=== PATIENT | male | born 1990 | race Caucasian/White ===

== ENCOUNTER 2023-03-20 19:24 | Emergency (ER) | payer OTHER, SELFPAY ==
[2023-03-20] VITALS (7 sets, daily range): BP systolic 130–142; BP diastolic 80–96; PULSE 61–77; RESP 16; TEMP 36.8; O2SAT 97–100; BMI 21.7
--- NOTE | 2023-03-20 19:36 | ED.NAVMDI ---
HPI - Nausea/Vomiting/Diarrhea General Chief complaint: Nausea/Vomiting/Diarrhea Stated complaint: Vertigo, Nausea, Confusion, Drunk feeling Time Seen by Provider: 03/20/23 19:28 Source: patient and family Mode of arrival: Ambulatory History of Present Illness HPI Narrative: Patient is a 32-year-old otherwise healthy male who is here for evaluation of an episode of nausea and vertigo and confusion and had fog. Patient states he was at his normal state of health. He went for a run. He states it was not particularly hard run. States that afterwards he was standing in the shower when he had a sudden onset of feeling like things were spinning. Was having nausea but no vomiting. States he is having some problems thinking of words. No headache. No ringing in his ears. No sinus congestion. No chest pain or palpitations. No shortness of breath. He thinks that his symptoms have improved slightly from the onset but is certainly not back to normal. Had some tingling in his hands. Related Data Previous Rx's Medication Instructions Recorded meclizine 25 mg tablet 25 mg PO BID PRN motion sickness 03/20/23 #14 tabs ondansetron 4 mg disintegrating 4 mg PO Q6H PRN nausea and 03/20/23 tablet vomiting #14 tabs Allergies Allergy/AdvReac Type Severity Reaction Status Date / Time No Known Drug Allergies Allergy Verified 03/20/23 19:32 Review of Systems Constitutional Constitutional: Reports system reviewed and no additional complaints, except as documented Cardiovascular Cardiovascular: Reports system reviewed and no additional complaints, except as documented Respiratory Respiratory: Reports system reviewed and no additional complaints, except as documented Gastrointestinal Gastrointestinal: Reports system reviewed and no additional complaints, except as documented Musculoskeletal Musculoskeletal: Reports system reviewed and no additional complaints, except as documented Integumentary/Breasts Skin/Breast: Reports system reviewed and no additional complaints, except as documented Neurologic Neurologic: Reports system reviewed and no additional complaints, except as documented Hematologic/Lymphatic On Anticoagulants: No Patient History Medical History Chronic prostatitis History of chlamydia History of chronic urinary tract infection History of dysuria Family History Father Cancer Grandfather Cancer Social History marital status: unmarried,single number of children: 0 occupational status: employed Smoking Status: Never smoker alcohol intake: current caffeine: Yes Type(s) of exercise: regular exercise, weight lifting, other and running duration: > 90 minutes/day Smoking Status: Never smoker alcohol intake frequency: a few times a week Substance Use Type: does not use Exam Initial Vital Signs Initial Vital Signs: Vital Signs Temperature 98.2 F 03/20/23 19:32 Pulse Rate 73 03/20/23 19:32 Respiratory Rate 16 03/20/23 19:32 Blood Pressure 140/96 H 03/20/23 19:32 Pulse Oximetry 97 03/20/23 19:32 Oxygen Delivery Method Room Air 03/20/23 19:32 Const General: cooperative, comfortable and No ill appearing HENMT Head: normal to inspection and normocephalic Ears: hearing grossly normal bilaterally and TM's normal bilaterally Face and sinus: normal facial exam Mouth: oral mucosae normal Eyes Pupils: PERRL Resp Effort & Inspection: normal respiratory effort Auscultation: clear to auscultation bilaterally Cardio Rate: regular rate Rhythm: regular rhythm GI Inspection: normal to inspection Neuro General: patient alert, patient awake, patient oriented x3 and moves all extremities Cranial Nerves: CN's II-XI intact bilaterally Speech: speech normal Gait: normal gait Sensory Exam: no sensory deficits noted Other: Albaro-Hallpike maneuver reported positive to the left Extrem General: normal to inspection and capillary refill normal Course Orders Ordered: ED Orders 03/20/23 19:37 EKG-12 Lead Stat 03/20/23 19:48 Basic Metabolic Panel Stat Complete Blood Count AUTO DIFF Stat Ondansetron HCl (Ondansetron 4 Mg Odt Prepack) 1 bottle MISC SEEINSTR ONE Stop: 03/20/23 21:07 Discontinued Medications Sodium Chloride (Normal Saline 0.9%) 1,000 mls @ 1,000 mls/hr IV BOLUS ONE Stop: 03/20/23 20:35 Last Infusion: 03/20/23 20:51 Dose: 0 mls/hr Documented By: Admin: 03/20/23 19:57 Dose: 1,000 mls/hr Documented By: KASSIDY Meclizine HCl (Meclizine Hcl 12.5 Mg Tablet) 25 mg PO NOW ONE Stop: 03/20/23 19:37 Last Admin: 03/20/23 19:54 Dose: 25 mg Documented By: KASSIDY Vital Signs Vital signs: Vital Signs - 8 hr 03/20/23 19:32 Temperature 98.2 F Pulse Rate 73 Respiratory Rate 16 Blood Pressure 140/96 H Pulse Oximetry 97 Oxygen Delivery Method Room Air MDM - Nausea/Vomiting/Diarrhea Lab Data Attestation: I reviewed the patient's lab results. 03/20/23 19:48 03/20/23 19:48 Labs: Lab Results 03/20/23 03/20/23 Range/Units 19:48 19:48 WBC 10.3 (4.5-11.0) X10^3/uL RBC 4.84 (4.5-5.9) X10^6/uL Hgb 15.1 (13.5-17.5) g/dL Hct 43.6 (41-53) % MCV 90.1 (80-100) fL MCH 31.2 (26-34) PG MCHC 34.6 (30-36) % RDW 12.8 (11.6-14.8) % Plt Count 220 (150-400) X10^3/uL Neut % (Auto) 76.7 H (50-75) % Lymph % (Auto) 16.5 L (25-40) % Terrell % (Auto) 5.5 (3-14) % Eos % (Auto) 0.6 L (2-4) % Baso % (Auto) 0.7 (0-2) % Neut # (Auto) 7900 H (7652-0391) /uL Lymph # (Auto) 1700 (7830-6812) /uL Terrell # (Auto) 600 (0-900) /uL Eos # (Auto) 100 (0-450) /uL Baso # (Auto) 100 (0-100) /uL Sodium 135 L (137-145) mmol/L Potassium 3.9 (3.4-5.1) mmol/L Chloride 101 (98-107) mmol/L Carbon Dioxide 27 (22-32) mmol/L BUN 14 (9-20) mg/dL Creatinine 0.78 (0.66-1.25) mg/dL Estimated GFR > 60 (>60) mL/min BUN/Creatinine Ratio 17.9 (6-22) Glucose 124 H (70-100) mg/dL Calcium 8.9 (8.4-10.2) mg/dL ECG Data Attestation: I personally reviewed and interpreted this ECG as follows: Interpretation: Sinus rhythm Ventricular rate is 61 Normal axis Normal QRS No ST T wave changes MDM Narrative Medical decision making narrative: After meclizine patient states that the vertigo has improved but he is still feeling somewhat foggy in his head. Patient ambulated without issues. When I re-evaluated him after that he stated that even the fogginess starting to improve. He did have a positive Albaro-Hallpike maneuver to the left. The very high suspicion that this is peripheral vertigo. Low suspicion for CVA based on his presentation in his exam today. Plan will be to discharge home with Zofran for any nausea and then a prescription for meclizine. We did discuss the Emperatriz maneuver. He was given return precautions and follow-up instructions. He expressed understanding and agreement. Discharge Plan Departure Patient Disposition: Home Clinical Impression: Vertigo Instructions: DI for Vertigo Activity Restrictions/Additional Instructions: You can look up what is called the ?Emperatriz maneuver? to try to help with your symptoms. Be sure that you were staying hydrated. Use the meclizine as needed for comfort. Return to the emergency department for new or worsening symptoms. Prescriptions: New meclizine 25 mg tablet 25 mg PO BID PRN (Reason: motion sickness) Qty: 14 0RF ondansetron 4 mg tablet,disintegrating 4 mg PO Q6H PRN (Reason: nausea and vomiting) Qty: 14 0RF Referrals: ProviderMike [Primary Care Provider] - Stand Alone Forms: Patient Portal/API
[2023-03-20] MEDS: MECLIZINE HCL 12.5 MG TABLET 25 MG PO (19:54)
[2023-03-20 19:55] LABS: Add Manual Diff / Slide Review NO; Basophils Absolute Auto 100 /uL (0-100); Basophils Percent Auto 0.7 % (0-2); Eosinophils Absolute Auto 100 /uL (0-450); Eosinophils Percent Auto 0.6 % (2-4); Hematocrit 43.6 % (41-53); Hemoglobin 15.1 g/dL (13.5-17.5); Lymphocytes Absolute Auto 1700 /uL (1100-4500); Lymphocytes Percent Auto 16.5 % (25-40); Mean Corpuscular HGB Conc 34.6 % (30-36); Mean Corpuscular Hemoglobin 31.2 PG (26-34); Mean Corpuscular Volume 90.1 fL (80-100); Monocytes Absolute Auto 600 /uL (0-900); Monocytes Percent Auto 5.5 % (3-14); Neutrophils Absolute Auto 7900 /uL (1500-7000); Neutrophils Percent Auto 76.7 % (50-75); Platelet Count 220 X10^3/uL (150-400); Red Blood Cell Count 4.84 X10^6/uL (4.5-5.9); Red Cell Distribution Width 12.8 % (11.6-14.8); White Blood Cell Count 10.3 X10^3/uL (4.5-11.0)
[2023-03-20] MEDS: SODIUM CHLORIDE 0.9% 1,000 ML 1000 ML IV (19:57)
[2023-03-20 20:06] LABS: BUN Creatinine Ratio 17.9 (6-22); Blood Urea Nitrogen 14 mg/dL (9-20); Calcium 8.9 mg/dL (8.4-10.2); Carbon Dioxide 27 mmol/L (22-32); Chloride 101 mmol/L (98-107); Estimated Glomerular Filt Rate > 60 mL/min (>60); Glucose 124 mg/dL (70-100); HEMOLYSIS < 15 (0-50); Potassium 3.9 mmol/L (3.4-5.1); Sodium 135 mmol/L (137-145)
[2023-03-20] MEDS: ONDANSETRON 4 MG ODT PREPACK 1 BOTTLE MISC (21:13)
== END 2023-03-20 21:20 | disposition home or self-care (01) ==
PROVIDERS: Emergency Provider Emergency Medicine
DX: R42 Dizziness and giddiness (principal); R41.0 Disorientation, unspecified
CPT/HCPCS: 36415; 80048; 85025; 93005; 93010; 96360; 99284

== ENCOUNTER → 2024-01-09 16:47 | Outpatient (CLI) | payer OTHER, SELFPAY ==
--- NOTE | 2024-01-09 | DI.MRI.S_ITS ---
PROCEDURE: MR CERVICAL SPINE WO/W CON INDICATIONS: R/O MS TECHNIQUE: Noncontrast sagittal T1 spin echo and T2 fast spin echo, sagittal STIR, sagittal PD fast spin echo, foraminal oblique sagittal T2 fast spin echo, axial gradient echo or T2 fast spin echo through the cervical spine. After the administration of contrast, sagittal and axial T1 spin echo with fat saturation through the cervical spine. COMPARISON: None. FINDINGS: Image quality: Excellent. Alignment and curvature: There is normal bony alignment. Marrow: Marrow demonstrates normal overall signal. Spinal cord: Visualized spinal cord is normal in size, without white matter lesions. No suspicious intramedullary enhancement. No cerebellar tonsillar herniation. Paraspinous soft tissues: No paravertebral masses or suspicious enhancement. C2-C3: Normal appearance. C3-C4: Normal appearance. C4-C5: Normal appearance. C5-C6: Disc desiccation and posterior disc osteophyte complex, asymmetric to the left. Mild central canal stenosis. Facet and uncovertebral arthropathy. [id number] left neural foraminal stenosis. No right neural foraminal stenosis. C6-C7: Mild disc desiccation. Facet and uncovertebral arthropathy resulting in mild left neural foraminal stenosis. No right neural foraminal stenosis. C7-T1: Normal appearance. IMPRESSION: 1. The spinal cord is normal in size and signal intensity. No abnormal enhancement. No findings concerning for demyelination. 2. Degenerative changes of the cervical spine as described above. Dictated by: Howard Houston M.D. on 01/09/2024 at 17:41 Approved by: Howard Huoston M.D. on 01/09/2024 at 17:45
--- NOTE | 2024-01-09 16:48 | DI.MRI.S_ITS ---
PROCEDURE: MR HEAD/BRAIN WO/W CON INDICATIONS: POLYNEUROPATHY / RULE OUT MS TECHNIQUE: Noncontrast axial T1 spin echo, axial T2 fast spin echo, sagittal and axial FLAIR, coronal T2 fast spin echo, axial gradient echo, axial diffusion and ADC through the brain. After the administration of contrast, axial and coronal and sagittal 3D VIBE or T1 spin echo with fat saturation through the brain. COMPARISON: None. FINDINGS: Image quality: Excellent. CSF Spaces: Basal cisterns are patent. No extra-axial fluid collections. Ventricles are normal in size and shape. Brain: No midline shift. No intracranial bleeds or masses. No abnormal intracranial enhancement. The brainstem appears normal. Diffusion-weighted images demonstrate no acute infarct. No chronic ischemic insults. Normal intravascular flow voids are present. Skull and face: Calvarial marrow is normal in signal. Orbits appear normal. Sinuses: Sinuses and mastoids appear clear. IMPRESSION: Normal MRI of the brain. Evidence of white matter disease Approved by: Rolo Cannon M.D. on 01/10/2024 at 11:44
== END ==
PROVIDERS: Referring Provider Student in an Organized Health Care Education/Training Program; Visit Provider Student in an Organized Health Care Education/Training Program
DX: M47.812 Spondylosis without myelopathy or radiculopathy, cervical region (principal); G62.9 Polyneuropathy, unspecified; R25.3 Fasciculation
CPT/HCPCS: 70553; 72156; A9579

== ENCOUNTER → 2024-01-10 12:48 | Outpatient (CLI) | payer OTHER, SELFPAY ==
--- NOTE | 2024-01-10 12:49 | DI.MRI.S_ITS ---
PROCEDURE: MR LUMBAR SPINE WO/W CON INDICATIONS: POLYNEUROPATHY R/O MULTIPLE SCLEROSIS TECHNIQUE: Noncontrast sagittal T1 spin echo and T2 fast spin echo, sagittal STIR, axial T1 and T2 fast spin echo through the lumbar spine. In cases with scoliosis, additional coronal T2 fast spin echo may be performed. After the administration of contrast, sagittal and axial T1 spin echo with fat saturation through the lumbar spine. COMPARISON: None. FINDINGS: Image quality: Excellent. Alignment and curvature: There is normal bony alignment. Marrow: Marrow is of normal overall signal. No acute vertebral body compression fractures. No suspicious marrow enhancement. Spinal cord: Conus medullaris terminates at the T12-L1 level. There is a 2 mm enhancing lesion along the cauda equina nerve root at the level of L2-3 (series 4, image 10 and series 10, image 10. Paraspinous soft tissues: No paravertebral masses or abnormal enhancement. T12-L1: Normal appearance. L1-L2: Normal appearance. L2-L3: Normal appearance. L3-L4: Normal appearance. L4-L5: Mild bilateral facet arthropathy. No stenosis. L5-S1: Disc bulge, asymmetric to the left, resulting in narrowing of the left lateral recess. Mild left facet arthropathy. No central canal stenosis. No neural foraminal stenosis. Visualized sacrum is unremarkable. No abdominal aortic aneurysm. IMPRESSION: 1. Minimal degenerative change of the lumbar spine, most pronounced at L5-S1, where there is narrowing of the left lateral recess. No neural foraminal or central canal stenosis in the lumbar spine. 2. 2 mm enhancing lesion along the cauda equina nerve roots at the level of L2-3. Dictated by: Socorro Licona M.D. on 01/10/2024 at 20:15 Approved by: Socorro Licnoa M.D. on 01/10/2024 at 20:26
--- NOTE | 2024-01-10 12:49 | DI.MRI.S_ITS ---
PROCEDURE: MR THORACIC SPINE WO/W CON INDICATIONS: POLYNEUROPATHY R/O MULTIPLE SCLEROSIS TECHNIQUE: Noncontrast sagittal T1 spin echo and T2 fast spin echo, sagittal STIR, axial T1 and T2 fast spin echo through the thoracic spine. After the administration of contrast, axial and sagittal T1 spin echo with fat saturation through the thoracic spine. COMPARISON: None. FINDINGS: Image quality: Excellent. Alignment and curvature: There is normal bony alignment. Marrow: Marrow is of normal overall signal. No acute vertebral body compression fractures. Spinal cord: There is mild dilatation of the central canal of the thoracic cord at the level of T4-T6, measuring approximately 2 mm. No increased T2 hyperintense lesion within the thoracic cord to suggest demyelinating lesion. Paraspinous soft tissues: No paravertebral masses or abnormal enhancement. Central canal stenosis: None. Right neural foraminal stenosis none. Left neural foraminal stenosis: None. IMPRESSION: Mild dilatation of the central canal of the thoracic cord at the level of T4-T6. No demyelinating lesion in the thoracic cord. No significant stenosis in the thoracic spine. Dictated by: Socorro Licona M.D. on 01/10/2024 at 20:06 Approved by: Socorro Licona M.D. on 01/10/2024 at 20:15
== END ==
PROVIDERS: Referring Provider Student in an Organized Health Care Education/Training Program; Visit Provider Student in an Organized Health Care Education/Training Program
DX: G62.9 Polyneuropathy, unspecified (principal); G83.4 Cauda equina syndrome
CPT/HCPCS: 72157; 72158; A9579

== ENCOUNTER → 2024-04-25 07:19 | Outpatient (CLI) | payer OTHER, SELFPAY ==
--- NOTE | 2024-04-25 | DI.MRI.S_ITS ---
PROCEDURE: MR WRIST RT WO CON INDICATIONS: PAIN IN RIGHT WRIST/PAIN IN RIGHT HIP TECHNIQUE: Noncontrast coronal proton density fast spin echo and T2 fast spin echo with fat saturation; coronal 3-D gradient echo, axial T1 spin echo and T2 fast spin echo with fat saturation, sagittal T1 spin echo through the wrist. COMPARISON: None. FINDINGS: Image quality: Excellent. Bones and cartilage: The carpal bones are normally aligned. No bone marrow contusions or fractures. No evidence for avascular necrosis. Overlying cartilage surfaces appear normal. Carpal ligaments: The scapholunate and lunotriquetral ligaments appear intact. In the absence of intra-articular contrast, the extrinsic carpal ligaments are not well identified. On sagittal images, the pisohamate ligament appears intact. Triangular fibrocartilage complex: Central disc perforation (series 8, image 38). The fovea and the ulnar styloid attachment is unremarkable. Tendons and soft tissues: The carpal tunnel structures appear normal, including the median nerve. The ulnar nerve appears normal within Guyon's canal. Low-grade interstitial tear of the extensor carpi ulnaris at the level of the distal radius in the proximal carpal row. No ganglion cyst. IMPRESSION: 1. Central disc perforation of the triangular fibrocartilage. 2. Low-grade interstitial tear of the extensor carpi ulnaris. Dictated by: Socorro Licona M.D. on 04/25/2024 at 14:06 Approved by: Socorro Licona M.D. on 04/25/2024 at 14:13
--- NOTE | 2024-04-25 | DI.MRI.S_ITS ---
PROCEDURE: MR PELVIS WO CON INDICATIONS: PAIN IN RIGHT WRIST/PAIN IN RIGHT HIP TECHNIQUE: Noncontrast coronal and axial T1 spin echo and STIR through the bony pelvis. COMPARISON: None. FINDINGS: Image quality: Excellent. Bones: Disc bulge at L5-S1 with annular fissure. The marrow signal of the visualized lower lumbar spine, the sacrum, and bilateral sacroiliac joints are unremarkable. No acute fracture or dislocation of either hip. No avascular necrosis of either femoral head. No significant degenerative changes of either hip. Tendons: The right iliopsoas, and adductor tendon are unremarkable. The right hamstring tendon is unremarkable. The right gluteal minimus and gluteal medius tendon unremarkable. The left iliopsoas, and adductor tendon are unremarkable.the left hamstring tendon is unremarkable. The left gluteal minimus in the left gluteal medius tendon unremarkable. Soft tissues: Unremarkable IMPRESSION: 1. Disc bulge at L5-S1 with annular fissure. 2. Otherwise unremarkable pelvic MRI. Dictated by: Socorro Licona M.D. on 04/25/2024 at 14:13 Approved by: Socorro Licona M.D. on 04/25/2024 at 14:21
== END ==
LOC: MRI 07:20
PROVIDERS: Referring Provider Student in an Organized Health Care Education/Training Program; Visit Provider Student in an Organized Health Care Education/Training Program
DX: S66.811A Strain of other specified muscles, fascia and tendons at wrist and hand level, right hand, initial encounter (principal); M25.531 Pain in right wrist; M25.551 Pain in right hip; M51.379 Other intervertebral disc degeneration, lumbosacral region without mention of lumbar back pain or lower extremity pain
CPT/HCPCS: 72195; 73221

== ENCOUNTER 2025-05-13 15:59 | Emergency (ER) | payer OTHER, SELFPAY ==
[2025-05-13 16:14] VITALS: BP 142/84; PULSE 64; RESP 18; TEMP 36.9; O2SAT 97; BMI 21.7
--- NOTE | 2025-05-13 17:27 | DI.RAD.S_ITS ---
PROCEDURE: XR FOOT LT MIN 3V INDICATIONS: foot pain TECHNIQUE: 3 views of the foot were acquired. COMPARISON: None. FINDINGS: Bones: No fractures or dislocations. No suspicious bony lesions. Soft tissues: No tibiotalar joint effusion. Achilles tendon appears normal. IMPRESSION: No acute bony abnormality. Dictated by: Collins Bagley M.D. on 05/13/2025 at 18:15 Approved by: Collins Bagley M.D. on 05/13/2025 at 18:16
--- NOTE | 2025-05-13 17:31 | ED_ITS ---
<Statement entered by Imer Cordero, DO - 05/14/25 09:02> Co-sign statement: I was available for consultation during this patient's emergency department visit. This chart is being signed by myself for administrative purposes only. I do not have direct contact with this patient during this visit. They were seen independently by the [facility]. HPI - Back Pain/Injury General Chief Complaint: Back Pain/Injury Stated Complaint: lower back pain/injury bruising on Lt foot Time Seen by Provider: 05/13/25 16:20 Source: patient History of Present Illness HPI Narrative: 34-year-old male with past medical history lower back pain due to L5-S1 disc impingement, equinus in bilateral feet presents to the ED with 4 days of lower back pain and left foot pain. Patient states that he has to wear stiff soled shoes for the equinus, however he went running 4 days ago without them. Since then, patient has had an exacerbation of his lower back pain with sciatica down the right leg. Patient is also complaining of a couple of bruises on the left front foot and foot pain in that region. No numbness, tingling, weakness. Patient is able to bear weight and walk. Related Data Previous Rx's ?Medication ?Instructions ?Recorded cyclobenzaprine 10 mg tablet 10 mg PO TID PRN muscle s pasm #20 05/13/25 tabs Allergies Allergy/AdvReac Type Severity Reaction Status Date / Time No Known Drug Allergies Allergy Verified 05/13/25 16:19 Review of Systems Constitutional Constitutional: Denies chills, Denies fatigue, Denies fever(s), Denies frequent falls, Denies lethargy and Denies weakness Eyes Eyes: Denies change in vision, Denies eye discharge, Denies irritation and Denies loss of vision ENT Ears, Nose, Mouth, and Throat: Denies change in voice, Denies dizziness, Denies neck pain, Denies sore throat and Denies throat swelling Cardiovascular Cardiovascular: Denies chest pain, Denies irregular heart rhythm, Denies lightheadedness, Denies palpitations, Denies dyspnea, Denies dyspnea on exertion and Denies orthopnea Respiratory Respiratory: Denies cough, Denies dyspnea, Denies dyspnea on exertion and Denies wheezing Gastrointestinal Gastrointestinal: Denies abdominal pain, Denies change in bowel habits, Denies diarrhea, Denies nausea and Denies vomiting Musculoskeletal Musculoskeletal: Reports back pain, Denies neck pain, Denies numbness and Reports radiating pain into limb (Radiating down the right leg) Comments: Left foot bruising, pain Integumentary/Breasts Skin/Breast: Denies pruritus, Denies erythema, Denies rash and Denies wounds Neurologic Neurologic: Denies behavioral changes, Denies confusion, Denies dizziness, Denies frequent falls, Denies loss of vision, Denies numbness and Denies weakness Psychiatric Psychiatric: Denies anxiety, Denies behavioral changes, Denies confusion, Denies depression, Denies homicidal ideation and Denies suicidal ideation Endocrine Endocrine: Denies fatigue, Denies flushing and Denies palpitations Hematologic/Lymphatic Hematologic/Lymphatic: Denies easy bruising Allergic/Immunologic Allergic/Immunologic: Denies urticaria, Denies throat swelling and Denies wheezing Patient History Medical History History of chlamydia Chronic prostatitis History of dysuria History of chronic urinary tract infection Family History Father Cancer Grandfather Cancer Social History marital status: unmarried,single number of children: 0 occupational status: employed Smoking Status: Never smoker alcohol intake: current caffeine: Yes Type(s) of exercise: regular exercise, weight lifting, other and running duration: > 90 minutes/day Smoking Status: Never smoker alcohol intake frequency: a few times a week Exam Narrative Exam Narrative: Const General:?cooperative, healthy appearing and comfortable [facility] Head:?normal to inspection Ears:?hearing grossly normal bilaterally Nose:?external nose normal Face and sinus:?normal facial exam and sinuses nontender Mouth:?oral mucosae normal Throat:?posterior oropharynx normal Eyes General:?appearance normal, both eyes and all related structures Neck Neck:?normal visual inspection and no lymphadenopathy noted Resp Effort & Inspection:?normal respiratory effort Auscultation:?clear to auscultation bilaterally Cardio Rate:?regular rate Rhythm:?regular rhythm Musculoskeletal No midline tenderness to palpation. No paraspinal tenderness to palpation. There is 2 areas of bruising on the distal, dorsolateral aspect of the left foot, tender to palpation. Full range of motion. Strength and sensation is intact. Neurovascularly intact. Neuro General:?patient alert, patient awake and patient oriented x3 Initial Vital Signs Initial Vital Signs: Vital Signs Temperature 98.4 F 05/13/25 16:14 Pulse Rate 64 05/13/25 16:14 Respiratory Rate 18 05/13/25 16:14 Blood Pressure 142/84 H 05/13/25 16:14 Pulse Oximetry 97 05/13/25 16:14 Oxygen Delivery Method Room Air 05/13/25 16:14 Course Orders Ordered: ED Orders 05/13/25 17:27 XR foot LT min 3V Stat Vital Signs Vital signs: Vital Signs - 8 hr 05/13/25 16:14 Temperature 98.4 F Pulse Rate 64 Respiratory Rate 18 Blood Pressure 142/84 H Pulse Oximetry 97 Oxygen Delivery Method Room Air MDM - Back Pain/Injury MDM Narrative Medical decision making narrative: 34-year-old male with past medical history lower back pain due to L5-S1 disc impingement, equinus in bilateral feet presents to the ED with 4 days of lower back pain and left foot pain. Concern for acute on chronic lower back pain versus fracture/dislocation versus musculoskeletal sprain/strain versus other. Will obtain foot x-ray. Will prescribe muscle relaxants for the back pain. X-ray without acute findings. Recommend supportive care with Tylenol, ibuprofen, muscle relaxants. Recommend rest and continuing use of the rigid foot supports. Recommend follow-up with PCP as soon as possible. ED return precautions discussed with patient. Patient verbalized understanding. Medical records reviewed: Yes Discharge Plan Departure Patient Disposition: Home Clinical Impression: Foot pain, left Low back pain Qualifiers: Chronicity: chronic Back pain laterality: right Sciatica presence: with sciatica Sciatica laterality: sciatica of right side Qualified Code(s): M54.41 - Lumbago with sciatica, right side Instructions: DI for Low Back Pain Activity Restrictions/Additional Instructions: You were evaluated in the emergency department today for lower back pain and left foot pain. The x-ray was normal. The foot pain and bruises are likely due to the front of the foot taking a bigger impact due to running without the rigid supports. The lower back pain appears to be an exacerbation of the pre-existing L5-S1 disc issue. You are being prescribed a muscle relaxant for pain relief. You may also take Tylenol, ibuprofen and rest your feet and back to recover. Return to the ED if you have worsening symptoms, numbness, tingling, weakness, urinary symptoms. Prescriptions: New cyclobenzaprine 10 mg tablet 10 mg PO TID PRN (Reason: muscle spasm) Qty: 20 0RF Referrals: ProviderMike [Primary Care Provider, Family Practice] Stand Alone Forms: Patient Portal/API
[2025-05-13 18:46] VITALS: BP 117/75; PULSE 54; RESP 16; O2SAT 98
== END 2025-05-13 18:40 | disposition home or self-care (01) ==
PROVIDERS: Emergency Provider Student in an Organized Health Care Education/Training Program
DX: M79.672 Pain in left foot (principal); M54.41 Lumbago with sciatica, right side
CPT/HCPCS: 73630; 99281; 99283

== ENCOUNTER 2025-05-31 15:28 | Emergency (ER) | payer OTHER, SELFPAY ==
[2025-05-31 15:42] VITALS: BP 122/67; PULSE 63; RESP 17; TEMP 36.6; O2SAT 99; BMI 21.7
--- NOTE | 2025-05-31 16:17 | ED.SKABFB ---
HPI - Skin/Abscess/Foreign Bdy <Iman Moffett PA-C - Last Filed: 05/31/25 20:22> General Chief complaint: Skin/Abscess/Foreign Body Stated complaint: lump forming left lumbar Time Seen by Provider: 05/31/25 15:30 Source: patient Mode of arrival: Ambulatory History of Present Illness HPI narrative: Mr. Gr is a very pleasant 34-year-old male with no significant past medical history who presents to the emergency department for a small bump on the right side of his back x7 days. Patient has what he believes is an abscess on his right mid back region for the last week. He has not had any drainage from it. He has been using warm compresses without relief of symptoms. He otherwise feels well with no fever, chills, spreading rash or other concerns. Denies history of abscess or I and D's. Related Data Previous Rx's ?Medication ?Instructions ?Recorded cyclobenzaprine 10 mg tablet 10 mg PO TID PRN muscle spasm #20 05/13/25 tabs doxycycline hyclate 100 mg capsule 100 mg PO BID 7 days #14 caps 05/31/25 Allergies Allergy/AdvReac Type Severity Reaction Status Date / Time No Known Drug Allergies Allergy Verified 05/31/25 15:41 Review of Systems <Iman Moffett PA-C - Last Filed: 05/31/25 20:22> Review of Systems ROS Unobtainable: All systems reviewed & are unremarkable except as noted in HPI and below Patient History <Iman Moffett PA-C - Last Filed: 05/31/25 20:22> Medical History History of chlamydia Chronic prostatitis History of dysuria History of chronic urinary tract infection Family History Father Cancer Grandfather Cancer Social History marital status: unmarried,single number of children: 0 occupational status: employed Smoking Status: Never smoker alcohol intake: current caffeine: Yes Type(s) of exercise: regular exercise, weight lifting, other and running duration: > 90 minutes/day Smoking Status: Never smoker alcohol intake frequency: a few times a week Exam <Iman Moffett PA-C - Last Filed: 05/31/25 20:22> Narrative Exam Narrative: GENERAL: 34 year old patient appears stated age. Well-developed patient, in no acute distress. HEAD: Atraumatic. Normocephalic. No scleral icterus. No injection or drainage. NECK: Trachea midline. Cervical ROM intact. CARDIOVASCULAR: Regular rate RESPIRATORY: ?Nonlabored respirations. ?Speaking in clear, full sentences. NEURO: AOx3. ?Clear speech. ?Moves all 4 extremities appropriately. SKIN: On the right throacic back region, there is a 1.5 cm circumferential area of elevation with a central pore and central fluctuance. No surrounding or streaking erythema. Consistent with an abscess. Initial Vital Signs Initial Vital Signs: Vital Signs Temperature 98 F 05/31/25 15:42 Pulse Rate 63 05/31/25 15:42 Respiratory Rate 17 05/31/25 15:42 Blood Pressure 122/67 05/31/25 15:42 Pulse Oximetry 99 05/31/25 15:42 Oxygen Delivery Method Room Air 05/31/25 15:42 <Pushpa Flores MD - Last Filed: 05/31/25 23:35> Initial Vital Signs Initial Vital Signs: Vital Signs Temperature 98 F 05/31/25 15:42 Pulse Rate 63 05/31/25 15:42 Respiratory Rate 17 05/31/25 15:42 Blood Pressure 122/67 05/31/25 15:42 Pulse Oximetry 99 05/31/25 15:42 Oxygen Delivery Method Room Air 05/31/25 15:42 Procedures <Iman Moffett PA-C - Last Filed: 05/31/25 20:22> Abscess I/D I&D #1: Site: back (mid back thoracic region, right) Side (if applicable): right Sedation/analgesia: none Local Anesthetic: lidocaine 1% and with epi Amount of anesthesia used (mL): 2 Technique: incised with #11 blade Amount of fluid expressed (mL): 3 Irrigation: Yes Packing used?: none Course <Iman Moffett PA-C - Last Filed: 05/31/25 20:22> Orders Ordered: ED Orders 05/31/25 17:42 Wound Culture and Gram Stain Stat Discontinued Medications Lidocaine/Epinephrine (Lidocaine 1% W/Epi 10ml) 5 ml SUBCUT NOW ONE Stop: 05/31/25 16:23 Last Admin: 05/31/25 16:39 Dose: 5 ml Documented By: CTS Vital Signs Vital signs: Vital Signs - 8 hr 05/31/25 15:42 05/31/25 17:48 Temperature 98 F Pulse Rate 63 65 Respiratory Rate 17 16 Blood Pressure 122/67 113/73 Pulse Oximetry 99 99 Oxygen Delivery Method Room Air Room Air <Pushpa Flores MD - Last Filed: 05/31/25 23:35> Orders Ordered: ED Orders 05/31/25 17:42 Wound Culture and Gram Stain Stat Discontinued Medications Lidocaine/Epinephrine (Lidocaine 1% W/Epi 10ml) 5 ml SUBCUT NOW ONE Stop: 05/31/25 16:23 Last Admin: 05/31/25 16:39 Dose: 5 ml Documented By: CTS Vital Signs Vital signs: Vital Signs - 8 hr 05/31/25 15:42 05/31/25 17:48 Temperature 98 F Pulse Rate 63 65 Respiratory Rate 17 16 Blood Pressure 122/67 113/73 Pulse Oximetry 99 99 Oxygen Delivery Method Room Air Room Air MDM - Skin/Abscess/Foreign Bdy <Iman Moffett PA-C - Last Filed: 05/31/25 20:22> Medical Records Attestation: I reviewed the patient's medical records. MDM Narrative Medical decision making narrative: 34-year-old male with no significant past medical history who presents to the emergency department for a small bump on the right side of his back x7 days. Differential diagnosis includes but is not limited to infected epidermoid cyst, abscess, etc. On exam the patient is in no acute distress, nontoxic-appearing, all vital signs within normal limits. On his right thoracic back region he has a small about 1.5 cm circumferential abscess with a central pore. No surrounding cellulitis. With the patient's consent, we will proceed with incision and drainage, we will treat empirically with doxycycline. Incision and drainage performed, patient tolerated procedure extremely well. He did have purulent drainage in addition to some thicker contents that looked like a possible infected epidermoid cyst. Dressing was applied, doxycycline sent to pharmacy of choice, discussed proper wound care, PCP follow up in ER return precautions. Patient verbalized understanding all information is agreeable with the plan. He is ambulatory and stable for discharge home. Discharge Plan Departure Patient Disposition: Home Clinical Impression: Cutaneous abscess of back excluding buttocks Instructions: DI for Skin Abscess Activity Restrictions/Additional Instructions: Dear Mr. Gr, Thank you for coming to the emergency department. Today you were evaluated and treated for an abscess on the right side of your back. An incision and drainage was performed and a wound culture was sent to the lab. It is very important to keep this area clean and covered at all times. I recommend using Hibiclens soap or dial antibacterial bar soap to clean the area twice daily. Please keep it covered with gauze/a bandage. Please complete the full course of antibiotics. Please be aware that this course of antibiotics may increase your risk of sunburn and can cause acid reflux if you take it and then lie flat within the 1st 30 minutes to 1 hour. Do not take this medication with dairy. Please return to the emergency department if you develop fevers, spreading redness on the back, worsening symptoms or any other concerns. Please follow up with your primary care doctor within the next 2-3 days for ER follow-up. (If you do not have a PCP you can call [phone]. ?to schedule an appointment with an [facility] Primary Care Provider) IF YOU DEVELOP ANY NEW OR WORSENING SYMPTOMS, RETURN TO THE ER! Please read the attached instructions, they highlight more specific treatments and interventions for you at home. Thank you for letting me participate in your care, Iman Moffett PA-C Prescriptions: New doxycycline hyclate 100 mg capsule 100 mg PO BID 7 Days Qty: 14 0RF No Action cyclobenzaprine 10 mg tablet 10 mg PO TID PRN (Reason: muscle spasm) Qty: 20 0RF Referrals: Provider,Mike PIZANO [Primary Care Provider, Family Practice] Stand Alone Forms: Patient Portal/API ED Sign-out <Pushpa Flores MD - Last Filed: 05/31/25 23:35> Cosign ED Attending Kanika Attestation: I was immediately available in the department for consultation throughout this patient's visit. Pushpa Flores MD
[2025-05-31] MEDS: LIDOCAINE 1% W/EPI 10ML 5 ML SUBCUT (16:39)
[2025-05-31 17:48] VITALS: BP 113/73; PULSE 65; RESP 16; O2SAT 99
== END 2025-05-31 17:49 | disposition home or self-care (01) ==
PROVIDERS: Emergency Provider Physician Assistant
DX: L02.212 Cutaneous abscess of back [any part, except buttock and flank] (principal)
CPT/HCPCS: 10060; 87070; 87075; 87077; 87186; 87205; 99281; 99283